=== PATIENT | male | born 1995 | race Caucasian/White ===

== ENCOUNTER 2025-05-10 11:02 | Outpatient (CLI) | payer BC, SELFPAY ==
--- NOTE | 2025-05-10 11:15 | CA_ITS ---
APPROVED REPORT EXAM: Comprehensive 2D, Doppler, and color-flow Echocardiogram Cell Operation Supervisor: Spring Vences RVT Ht: 5 ft 11 in Wt: 254lbs BSA: 2.33 BP: 130/82 mmHg Indications: PALPITATIONS 2D Dimensions LA Volume 26.00 mL LA Volume Index 11.11 mL/m2 (M/F) 16-34 M-Mode Dimensions RVDd 3.20 cm (0.9-2.6) LA Diam 2.96 cm (1.9-4.0) LVDd 4.88 cm (3.5-5.7) LVDs 3.16 cm (3.5-5.7) IVSd 1.00 cm (0.6-1.1) PWd 0.72 cm (0.6-1.1) EF (Teich) 64.50% FS 35.20% EDV (Teich) 111.70 mL TAPSE 3.11 (<1.7) ESV (Teich) 39.70 mL LV Diastology E Decel Time 150 (160-240 msec) E/A Ratio 1.5 Aortic Valve MAKAYLA Index 1.46 cm2/m2 AoV Peak Peter. 131.0 (50-130 cm/s) AO Peak GR. 6.80 mmHg AO Mean GR. 3.70 (<5 mmHg) AO VTI 22.3 (18-25 cm) MAKAYLA (VTI) 3.48 (2.5-4.5 cm2) Mitral Valve MV E Max Peter. 86.0 (40-130 cm/s) MV A Velocity 59.0 (40-130 cm/s) E/A Ratio 1.46 MV PHT 44.0 ms Pulmonary Valve PV Peak Velocity 104.0 (50-150 cm/s) Left Ventricle The left ventricle is normal size. Left ventricular systolic function is normal. The left ventricular ejection fraction is within the normal range. There is normal left ventricular wall thickness. There is normal LV segmental wall motion. The left ventricular diastolic function is normal. LVEF is 55% Right Ventricle The right ventricle is normal size. The right ventricular systolic function is normal. Atria The left atrium size is normal. The right atrium size is normal. There is no color Doppler evidence of interatrial shunt. Aortic Valve The aortic valve opens well. There is no hemodynamically significant aortic valvular stenosis. No aortic regurgitation is present. Mitral Valve The mitral valve is normal in structure. No evidence of mitral valve stenosis. Trace mitral regurgitation is present. Tricuspid Valve The tricuspid valve leaflets are thin and pliable. Trace tricuspid regurgitation. There is insufficient TR jet to estimate RVSP. Pulmonic Valve The pulmonary valve is grossly normal in structure. Trace pulmonic valve regurgitation is present. Great Vessels The aortic root is normal in size. IVC is normal in size and collapses >50% with inspiration. Pericardium There is no pericardial effusion. Other Information Study Quality: Fair Conclusion Normal biventricular systolic function. No significant valvular stenosis or regurgitation. Electronically signed by : Peggy Talbot MD 05/19/2025 03:43:29
== END 2025-05-10 23:59 | disposition home or self-care (01) ==
LOC: RT 11:04
PROVIDERS: PCP Nurse Practitioner Family; Visit Provider Nurse Practitioner Family
DX: I38 Endocarditis, valve unspecified (principal); R00.2 Palpitations
CPT/HCPCS: 93306

== ENCOUNTER 2025-05-18 14:36 | Outpatient (CLI) | payer BC, SELFPAY | END 2025-05-18 23:59 | disposition home or self-care (01) | LOC: RT 14:37 | PROVIDERS: PCP Nurse Practitioner Family; Visit Provider Nurse Practitioner Family | DX: R94.31 Abnormal electrocardiogram [ECG] [EKG] (principal); R00.2 Palpitations | CPT/HCPCS: 93225; 93227 ==